=== PATIENT | female | born 1985 | race Caucasian/White ===

== ENCOUNTER 2021-08-23 01:13 | Emergency (ER) | payer OTHER ==
[2021-08-23 02:02] LABS: HEMOGLOBIN 12.8 gm/dl (12.3-15.3); RED BLOOD COUNT 4.48 M/UL (4.00-5.10); WHITE BLOOD COUNT 6.3 K/UL (4.5-11.0)
[2021-08-23 02:24] LABS: BUN/CREATININE RATIO 16 (0-10)
== END 2021-08-23 04:36 | disposition home or self-care (01) ==
LOC: ER1 01:13
PROVIDERS: Physician Assistant
DX: R10.13 Epigastric pain (principal); R11.2 Nausea with vomiting, unspecified; R50.9 Fever, unspecified; K21.9 Gastro-esophageal reflux disease without esophagitis; I10 Essential (primary) hypertension
CPT/HCPCS: 80053; 81001; 83690; 84703; 85025; 99284; Q9967